=== PATIENT | female | born 1985 | race African-American/Black ===

== ENCOUNTER 2017-03-31 19:26 | Emergency (ER) | payer MEDICAID ==
[~2017-03-31] VITALS: Ht 177.8 cm; Wt 70.3 kg
[2017-03-31 20:03] VITALS: BP 120/77
[2017-03-31 20:29] LABS: APPEARANCE,URINE Clear (CLEAR); BILIRUBIN,URINE Negative (NEGATIVE); BLOOD, URINE Trace-intact Ery/uL (NEGATIVE); COLOR,URINE Yellow (YELLOW); KETONES,URINE Negative (NEGATIVE); LEUKOCYTE ESTERASE ,URINE Small (NEGATIVE); NITRITE, URINE Negative (NEGATIVE); PROTEIN,URINE Negative (NEGATIVE); UGLUCOSE Negative (NEGATIVE); UROBILINOGEN,URINE 0.2 EU/dL (0.2)
[2017-03-31 20:32] LABS: BASOPHILS # (AUTO) 0.1 /CMM (0.0-0.2); BASOPHILS % (AUTO) 1.3 % (0.0-2.0); EOSINOPHILS # (AUTO) 0.1 /CMM (0.0-0.7); EOSINOPHILS % (AUTO) 0.5 % (0.0-6.0); HEMATOCRIT 38 % (33-45); HEMOGLOBIN 13.2 g/dL (11.5-14.8); MEAN CORPUSCULAR HEMOGLOBIN 30 PG (26.0-33.0); MEAN CORPUSCULAR HGB CONC 34 g/dl (31.0-36.0); MEAN CORPUSCULAR VOLUME 86 fL (82-100); MONOCYTES # (AUTO) 0.6 /CMM (0.1-1.30); MONOCYTES % (AUTO) 5.9 % (2.0-12.0); NEUTROPHILS # (AUTO) 6.6 /CMM (1.8-8.9); NEUTROPHILS % (AUTO) 63.3 % (43.0-81.0); PLATELET COUNT (AUTO) 229 /CMM (150-450); RDW COEFFICIENT OF VARIATION 12.6 (11.5-15.0); RED BLOOD CELL COUNT(AUTO) 4.43 MIL/uL (4.0-5.2); WHITE BLOOD COUNT (AUTO) 10.4 K/uL (4.3-11.0)
[2017-03-31 20:39] LABS: CALCIUM, SERUM 8.8 mg/dL (8.5-10.1); POTASSIUM 3.4 mmol/L (3.5-5.1)
[2017-03-31] MEDS ORDERED: ROCURONIUM BROMIDE 50 MG/5 ML ONE (21:05)
[2017-03-31] MEDS ORDERED: MIDAZOLAM HCL 2 MG/2ML VIAL ONE (21:05)
[2017-03-31] MEDS ORDERED: SUCCINYLCHOLINE CHLORIDE 20 MG/ML VIAL ONE (21:05)
[2017-03-31] MEDS ORDERED: FENTANYL PF 100MCG/2ML AMPUL ONE (21:05)
[2017-03-31 21:11] LABS: BACTERIA,URINE Few /HPF (None Seen); RBC,URINE 2-3/HPF /HPF (0-2); SQUAMOUS EPITHELIAL CELL,UR Moderate /HPF (None Seen); URINE AMORPHOUS URATE Few /HPF (None Seen)
== END 2017-03-31 21:52 | disposition home or self-care (01) ==
LOC: ER 19:26
DX: O20.0 Threatened abortion (principal); Z41.1 Encounter for cosmetic surgery
CPT/HCPCS: 36415; 76856; 80048; 81001; 84702; 85025; 99285; A4606; J0330; J2250; J3010; Z7610; 81000-TC